=== PATIENT | female | born 1935 | race Caucasian/White ===

== ENCOUNTER → 2022-07-14 08:30 | Outpatient (CLI) | payer MEDICARE, OTHER, SELFPAY ==
--- NOTE | 2022-07-14 | DI.CT.S_ITS ---
PROCEDURE: CT HEAD/BRAIN WO CON INDICATIONS: DIZZINESS TECHNIQUE: Noncontrast 4.5 mm thick angled axial sections acquired from the foramen magnum to the vertex, with coronal and sagittal reformats. For radiation dose reduction, the following was used: automated exposure control, adjustment of mA and/or kV according to patient size. COMPARISON: [facility], CT, CT FACIAL BONES WITH CONTRAST, 02/21/2021, 12:27. [facility], CT, HEAD WITHOUT CONTRAST, 05/14/2009, 8:57. FINDINGS: Image quality: Excellent. CSF spaces: Basal cisterns are patent. No extra-axial fluid collections. The ventricles are symmetric in size and shape. Brain: No intracranial bleeds or masses. There is cerebral volume loss for age, with resultant ventricular and sulcal prominence. There are periventricular and deep white matter chronic small vessel ischemic changes. There is intracranial internal carotid artery atherosclerosis. Skull and face: Calvarium and visualized facial bones appear intact, without suspicious lesions. Sinuses: Visualized sinuses and mastoids are clear. IMPRESSION: Senescent changes of mild cerebral volume loss and microvascular ischemic changes without acute intracranial abnormality. Dictated by: Alejandro Holland D.O. on 07/14/2022 at 8:12 Approved by: Alejandro Holland D.O. on 07/14/2022 at 8:21
== END ==
PROVIDERS: PCP Family Medicine; Referring Provider Family Medicine; Visit Provider Family Medicine
DX: R42 Dizziness and giddiness (principal); R55 Syncope and collapse; R41.3 Other amnesia; R26.89 Other abnormalities of gait and mobility
CPT/HCPCS: 70450

== ENCOUNTER 2022-12-20 11:23 | Day surgery (SDC) | payer MEDICARE, OTHER, SELFPAY ==
[2022-12-20 13:21] VITALS: BP 145/99; PULSE 90; RESP 20; TEMP 36.1; O2SAT 97; BMI 22.3
--- NOTE | 2022-12-20 15:01 | P.HP_ITS ---
History of Present Illness History of Present Illness Date Patient Seen: 12/20/22 Time Patient Seen: 15:01 Chief complaint: Dx Colonoscopy w/poss bx Narrative: Anya is an 87-year-old woman who had 2 episodes of rectal bleeding recently. She has not had a colonoscopy before. [facility] Surgical History (Updated 06/11/17 @ 05:05 by Conversion Provider) History of cataract removal with insertion of prosthetic lens History of cataract removal with insertion of prosthetic lens Status post hysterectomy Family History (Updated 05/22/16 @ 00:00 by Conversion Provider) Mother High cholesterol Social History household members: none alcohol intake: current Meds Home Medications and Allergies Home Medications Medication Instructions Recorded Confirmed Type [CO-Q-10] Q DAY ##0 05/23/16 History losartan 25 mg tablet 25 mg PO BID #180 tabs 05/23/16 12/20/22 Rx lamotrigine 100 mg tablet 100 mg PO SEE INSTRUCTIONS 12/20/22 12/20/22 History (Lamictal) Allergies Allergy/AdvReac Type Severity Reaction Status Date / Time No Known Drug Allergies Allergy Verified 12/20/22 13:19 Exam Vital Signs (past 8 hours): - 12/20/22 13:21 Temperature 97.0 F L Pulse Rate 90 Respiratory Rate 20 Blood Pressure 145/99 H Pulse Oximetry 97 Oxygen Delivery Method Room Air Oxygen Delivery Method Room Air Const General: No acute distress Resp Effort & Inspection: normal respiratory effort Assessment & Plan Assessment and plan (1) Rectal bleeding: Status: Acute Plan We reviewed the risks and benefits of colonoscopy and she would like to proceed.
--- NOTE | 2022-12-20 15:39 | PM.OP.COLON ---
Operative Date/Time/Diagnoses Date of procedure: 12/20/22 Time of procedure: 15:39 Pre-op diagnosis: Rectal bleeding Post-op diagnosis: same Procedure & Clinicians Study performed: Colonoscopy Same procedure as scheduled: Yes Surgeon: Santos Montoya Procedure Notes Procedure in detail: Surgeon: Santos Montoya MD Anesthesia: Marilyn Stone CRNA Procedure: The patient was brought to the endoscopy suite, placed in left lateral decubitus position. The patient was connected to monitoring devices. A time-out was performed. Sedation was administered. Once the patient was adequately sedated, a digital rectal exam was performed and was normal. The scope was then inserted and advanced to the cecum where the appendiceal orifice was identified and photographed. The scope was then slowly withdrawn over greater than 6 minutes. The mucosa was thoroughly inspected. There was substantial diverticulosis greatest in the sigmoid colon. No other abnormalities were found. The scope was retroflexed in the rectum. Internal hemorrhoids were noted. The scope was straightened and removed. The patient was awakened and brought to recovery. Scope withdrawal time: 8 minutes Sedation time: 24 minutes EBL: 0 Findings: Extensive diverticulosis and hemorrhoids Post-procedure Disposition: PACU
[2022-12-20 15:40] VITALS: BP 105/73; PULSE 95; RESP 19; TEMP 37.1; O2SAT 95
[2022-12-20 15:45] VITALS: BP 91/61; PULSE 94; RESP 20; O2SAT 96
[2022-12-20 15:50] VITALS: BP 91/62; PULSE 92; RESP 18; O2SAT 95
[2022-12-20 16:05] VITALS: BP 108/70; PULSE 88; RESP 19; O2SAT 96
[2022-12-20 16:20] VITALS: BP 104/69; PULSE 90; RESP 18; TEMP 36.6; O2SAT 97
== END 2022-12-20 16:26 | disposition home or self-care (01) ==
PROVIDERS: PCP Family Medicine; Referring Provider Surgery; Visit Provider Surgery
PROC: 0DJD8ZZ Inspection of Lower Intestinal Tract, Via Natural or Artificial Opening Endoscopic (ICD-10-PCS; CPT 45378; principal; 2022-12-20 14:30)
DX: K62.5 Hemorrhage of anus and rectum (principal); K57.30 Diverticulosis of large intestine without perforation or abscess without bleeding; K64.8 Other hemorrhoids
CPT/HCPCS: 45378; J2704

== ENCOUNTER 2023-04-05 14:47 | Inpatient (IN) | payer MEDICARE, SELFPAY ==
[2023-04-05] VITALS (11 sets, daily range): BP systolic 115–188; BP diastolic 64–94; PULSE 75–86; RESP 16–26; TEMP 36.3–36.6; O2SAT 94–99; BMI 26.9
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
[2023-04-05 15:43] LABS: Add Manual Diff / Slide Review NO; Basophils Absolute Auto 0 /uL (0-100); Basophils Percent Auto 0.2 % (0-2); Eosinophils Absolute Auto 0 /uL (0-450); Eosinophils Percent Auto 0.3 % (2-4); Hematocrit 29.8 % (36-46); Hemoglobin 10.5 g/dL (12.0-16.0); Lymphocytes Absolute Auto 1000 /uL (1100-4500); Lymphocytes Percent Auto 14.6 % (25-40); Mean Corpuscular HGB Conc 35.3 % (30-36); Mean Corpuscular Hemoglobin 30.9 PG (26-34); Mean Corpuscular Volume 87.4 fL (80-100); Monocytes Absolute Auto 400 /uL (0-900); Monocytes Percent Auto 6.3 % (3-14); Neutrophils Absolute Auto 5400 /uL (1500-7000); Neutrophils Percent Auto 78.6 % (50-75); Platelet Count 314 X10^3/uL (150-400); Red Cell Distribution Width 14.1 % (11.6-14.8); White Blood Cell Count 6.8 X10^3/uL (4.5-11.0)
[2023-04-05 15:56] LABS: Lactate (Lactic Acid) 1.9 mmol/L (0.7-2.1)
[2023-04-05 15:57] LABS: Alanine Aminotransferase 16 IU/L (<35); Albumin 3.5 g/dL (3.5-5.0); Albumin Globulin Ratio 1.2 (1.0-2.8); Alkaline Phosphatase 60 U/L (38-126); Aspartate Aminotransferase 31 IU/L (14-36); BUN Creatinine Ratio 24.1 (6-22); Bilirubin Total 0.5 mg/dL (0.2-1.3); Blood Urea Nitrogen 26 mg/dL (7-17); Calcium 8.8 mg/dL (8.4-10.2); Carbon Dioxide 28 mmol/L (22-32); Chloride 84 mmol/L (98-107); Creatine Kinase 158 U/L (30-135); Estimated Glomerular Filt Rate 49 mL/min (>60); Globulin 2.9 g/dL (1.7-4.1); Glucose 127 mg/dL (80-110); HEMOLYSIS < 15 (0-50); Lipase 86 U/L (23-300); Magnesium 1.9 mg/dL (1.6-2.3); Potassium 3.4 mmol/L (3.4-5.1); Sodium 121 mmol/L (137-145); Total Protein 6.4 g/dL (6.3-8.2)
[2023-04-05 16:02] LABS: Prothrombin Time 11.3 SECONDS (9.4-12.5)
[2023-04-05 16:05] LABS: PTT Partial Thromboplastin Tim 30 SECONDS (25.1-36.5)
[2023-04-05 16:09] LABS: Troponin I < 0.012 ng/mL (0.01-0.034)
[2023-04-05 16:14] LABS: Procalcitonin 0.08 ng/mL (<0.5)
[2023-04-05 16:19] LABS: Bacteria Urine Few (2-10); RBC Urine 0-1/HPF (0-5/HPF); Squamous Epithelial Cell Urine 0-1 /HPF (0-5/HPF); Urine Volume 10mL (spun); WBC Urine 0-1/HPF (0-5/HPF)
[2023-04-05 16:20] LABS: Culture Indicated Urine Specimen Cultured; Granular Casts Urine 0-1/LPF; Mucus Urine 1+ (Negative)
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
--- NOTE | 2023-04-05 18:14 | CM.SWNOTE ---
Initial DCP Assessment Pt is 88 y/o female who presents to ED w/ son after syncopal episode and confusion today. Yesterday pt was pulled over by [employer] due to concern for driving over the medium, [employer] contacts pt's son from [facility] and son came to meet pt and witnessed pt's episode today. Pt's PCP is Dr. Sneed at [facility]. Pt has [employer], medicare, and [employer] insurance. Pt has hx of mixed Hyperlipedemia, HTN, and stage 3 CKD. Pt is hard of hearing and wears hearing aids. Pt is DNR and has living will. REPRODUCTIVE ENDOCRINOLOGIST enters the room to meet w/ pt. Pt consents to her son Aakash being present during assessment. Pt is oriented to person, place, and time but pt presents w/ confusion regarding memory recall and recent events. Pt lives alone on [address]. Pt [place] friends [place] for support. Pt's son Aakash lives in [facility] and visits every 4 to 6 weeks, Son checks in via texts and face time regularly. It is reported that daughter is disabled and resides in [place]. Pt often visits daughter via car. Pt indicates independence with ADL's. Pt states she exercises regularly, goes on walks, gardens, and manages her household. Pt states she drives independently at baseline and has no previous issues w/ driving. Pt's sons reprots w/ concern for an 8 hour period where it is unknown what pt was doing. Pt was in [facility] w/ plans to check into a hotel to take a driving test but pt never checked into the hotel yesterday. Pt endorses plans to continue to live on [address] and denies need for supports but is aware of [facility]. Pt's son indicates interest in looking into programs available to pt. ED provider reaches out to hospitalist due to concern for pt's acute hyponatremia and pt is accepted to acute care. Dr. Barnes enters room during assessment and endorses that pt will be admitted for a day or two. When REPRODUCTIVE ENDOCRINOLOGIST reviews this w/ pt she presents w/ confusion as to why she is being admitted. Pt states concern for making it to previously scheduled dermatology appointment Saturday w/ Dr. Dalton regarding concerns for skin cancer. Plan: Pt to be admitted to acute care. DCP to follow up w/ family and pt for POC. Recommend private conversation w/ son. MIRIAN Tang LSWAIC Discharge Planning/Care Management CM Discharge Assessment Start: 04/05/23 18:03 Freq: Status: Active Protocol: Document 04/05/23 18:04 BDL (Rec: 04/05/23 18:13 BDL [id number]) Discharge Planning Assessment Assigned Newspaper Photographer MIRIAN Tang LSWAIC DPOA/Assigned Designee Name Aakash Herrera - Son Contact Information [phone] Advance Directives? Yes: Living will Advance Directives on File No History Provided By Patient,Family Member,Medical Record Has Patient been admitted in last 30 No days? Prior Living Arrangements House Household Members none Type of transporation used prior to Drives own vehicle admit Comment Pt failed drive test yesterday . Pt drives at baseline. Independent with ADL's Yes Is patient alert and oriented? Yes: Confused Needs Assistance With Home Chores / Shopping Comment Pt pays for someone to mow the lawn. Caregiver for Another No Comment Pt preference is d/c home. Pt denies need for any services at this time. Reassess w/ pt and family. Barriers to Discharge No Additional Comment REPRODUCTIVE ENDOCRINOLOGIST discusses senior services through [place]. Please Provide Date Initial DC 04/05/23 Assessment Was Performed
[2023-04-05 18:34] LABS: Sodium Urine Random 68 mmol/L (30-90)
[2023-04-05 18:56] LABS: BUN Creatinine Ratio 24.8 (6-22); Blood Urea Nitrogen 26 mg/dL (7-17); Calcium 9.7 mg/dL (8.4-10.2); Carbon Dioxide 31 mmol/L (22-32); Chloride 87 mmol/L (98-107); Estimated Glomerular Filt Rate 51 mL/min (>60); Glucose 101 mg/dL (80-110); HEMOLYSIS < 15 (0-50); Potassium 4.9 mmol/L (3.4-5.1); Sodium 125 mmol/L (137-145)
[2023-04-05] MEDS: HEPARIN 5,000 UNIT/ML VIAL 5000 UNIT SUBCUT (20:34)
[2023-04-05] MEDS: SODIUM CHLORIDE 1,000 MG TABLET 1000 MG PO (20:34)
[2023-04-05] MEDS: SODIUM CHLORIDE 0.9% FLUSH 10 ML IV (20:46)
[2023-04-05] MEDS: diphenhydrAMINE 25 MG TABLET PO (21:58)
--- NOTE | 2023-04-05 22:18 | PC.NURSE ---
PT. educated that she can not take her home medications unless her doctor order that she can take her home meds. Also made aware that our day pharmacist needs to identify her home medications, before she can take it. She reported & stated my doctor said I can take my Ibuprofen PM. Informed her about our hospital policy that she can not take her own medicine unless MD order it. Put away her home medications in her bag & placed it in the recliner. Declined to put her meds. in the night pharmacy, coordinator notified. Dr. Hagan also notified she ordered 25 mg. Benadryl PO & order implemented. Will continue plan of care & monitor.
[2023-04-06 05:05] VITALS: BP 114/71; PULSE 70; RESP 18; TEMP 36.9; O2SAT 97
--- NOTE | 2023-04-06 07:38 | PM.PN.1 ---
Subjective Subjective Interval history: Her cognition is improved. She denies any problems overnight. She slept well. Exam Vital Signs (past 8 hours): - 04/06/23 05:05 Temperature 98.5 F Pulse Rate 70 Respiratory Rate 18 Blood Pressure 114/71 Pulse Oximetry 97 Oxygen Flow Rate 0 Oxygen Delivery Method Room Air Oxygen Flow Rate 0 Narrative Exam Narrative: NAD, alert and oriented. Fluent speech. Lungs are clear, normal rate and effort. Heart is regular, no murmur gallop or rub. Abdomen is soft, non distended. Extremities are free of edema. Objective Labs 04/05/23 15:35 04/05/23 18:12 Labs: Laboratory Results - last 24 hr 04/05/23 04/05/23 04/05/23 15:35 15:44 17:35 WBC 6.8 RBC 3.40 L Hgb 10.5 L Hct 29.8 L MCV 87.4 MCH 30.9 MCHC 35.3 RDW 14.1 Plt Count 314 Neut % (Auto) 78.6 H Lymph % (Auto) 14.6 L Routt % (Auto) 6.3 Eos % (Auto) 0.3 L Baso % (Auto) 0.2 Neut # (Auto) 5400 Lymph # (Auto) 1000 L Routt # (Auto) 400 Eos # (Auto) 0 Baso # (Auto) 0 PT 11.3 INR 1.0 APTT 30 Sodium 121 L Potassium 3.4 Chloride 84 L Carbon Dioxide 28 BUN 26 H Creatinine 1.08 H Estimated GFR 49 L BUN/Creatinine Ratio 24.1 H Glucose 127 H Lactate 1.9 Calcium 8.8 Magnesium 1.9 Total Bilirubin 0.5 AST 31 ALT 16 Alkaline Phosphatase 60 Total Creatine Kinase 158 H Troponin I < 0.012 Total Protein 6.4 Albumin 3.5 Globulin 2.9 Albumin/Globulin Ratio 1.2 Lipase 86 Procalcitonin 0.08 Urine RBC 0-1/hpf Urine WBC 0-1/hpf Ur Squamous Epith Cells 0-1 /hpf Urine Bacteria Few (2-10) H Granular Casts 0-1/lpf Urine Mucus 1+ H Ur Culture Indicated? Specimen cultured Vol Urine Centrifuged 10ml (spun) Ur Random Sodium 68 04/05/23 18:12 WBC RBC Hgb Hct MCV MCH MCHC RDW Plt Count Neut % (Auto) Lymph % (Auto) Routt % (Auto) Eos % (Auto) Baso % (Auto) Neut # (Auto) Lymph # (Auto) Routt # (Auto) Eos # (Auto) Baso # (Auto) PT INR APTT Sodium 125 L Potassium 4.9 D Chloride 87 L Carbon Dioxide 31 BUN 26 H Creatinine 1.05 H Estimated GFR 51 L BUN/Creatinine Ratio 24.8 H Glucose 101 Lactate Calcium 9.7 Magnesium Total Bilirubin AST ALT Alkaline Phosphatase Total Creatine Kinase Troponin I Total Protein Albumin Globulin Albumin/Globulin Ratio Lipase Procalcitonin Urine RBC Urine WBC Ur Squamous Epith Cells Urine Bacteria Granular Casts Urine Mucus Ur Culture Indicated? Vol Urine Centrifuged Ur Random Sodium PFSH Surgical History History of cataract removal with insertion of prosthetic lens History of cataract removal with insertion of prosthetic lens Status post hysterectomy Family History Mother High cholesterol Social History household members: none Smoking Status: Unknown if ever smoked alcohol intake: current Assessment & Plan Assessment & Plan narrative: 1. Hyponatremia in a patient who was taking salt tablets until 2 weeks ago. Present on admission and improving with sodium from 121-125 overnight. 2. Acute metabolic encephalopathy, present on admission and improving. This appears to relate to hyponatremia. 3. Hypertension, present on admission and active. Plan: -urine electrolytes, restart salt tablets and fluid restrict. -continue hypertension medications. DISPO: Anticipate discharge to home with son on April 07 if her sodium is close to 128 or 129 which is likely her baseline. Patient is DNR, confirmed time of admission. Her proxy decision maker is her son. Time Spent With Patient Time with patient: 30 to 49 minutes with 50% spent counseling/coordinating care
[2023-04-06] MEDS: LOSARTAN 50 MG TABLET 100 MG PO (09:13)
[2023-04-06] MEDS: hydroCHLOROthiazide 25 MG TABLET PO (09:13)
[2023-04-06] MEDS: HEPARIN 5,000 UNIT/ML VIAL 5000 UNIT SUBCUT ×2 (09:13→20:31)
[2023-04-06] MEDS: SODIUM CHLORIDE 1,000 MG TABLET 1000 MG PO ×2 (09:13→21:40)
[2023-04-06] MEDS: SODIUM CHLORIDE 0.9% FLUSH 10 ML IV ×2 (09:14→20:31)
[2023-04-06 11:57] VITALS: BP 148/99; PULSE 85; RESP 16; TEMP 36.2; O2SAT 98
--- NOTE | 2023-04-06 13:26 | CM.DPC ---
DCP Cont. Reviewed EMR and team rounds for status updates. Met with pt and son at bedside to discuss the plan for d/c once she's medically stable, she continues to be hyponatremic, but her mentation is improving since time of admit. This CARE ASST did explain the resources available at the 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 Plan is to d/c tomorrow back home to [place], her son, Aakash, will assist with getting her home.
[2023-04-06 16:00] VITALS: BP 165/88; PULSE 75; RESP 16; TEMP 36.7; O2SAT 96
[2023-04-06 20:00] VITALS: BP 179/90; PULSE 67; RESP 18; TEMP 36.3; O2SAT 96
[2023-04-06] MEDS: ACETAMINOPHEN 325 MG TABLET 650 MG PO (20:31)
[2023-04-07 05:10] VITALS: BP 130/84; PULSE 71; RESP 17; TEMP 36.6; O2SAT 99
[2023-04-07 08:51] VITALS: BP 178/100; PULSE 80; RESP 16; TEMP 36.4; O2SAT 96
[2023-04-07 08:59] VITALS: BP 178/100; PULSE 80
[2023-04-07] MEDS: LOSARTAN 50 MG TABLET 100 MG PO (08:59)
[2023-04-07] MEDS: HEPARIN 5,000 UNIT/ML VIAL 5000 UNIT SUBCUT (08:59)
[2023-04-07] MEDS: SODIUM CHLORIDE 1,000 MG TABLET 1000 MG PO (09:00)
[2023-04-07] MEDS: SODIUM CHLORIDE 0.9% FLUSH 10 ML IV (09:00)
[2023-04-07] MEDS: hydroCHLOROthiazide 25 MG TABLET PO (09:00)
[2023-04-07 09:49] LABS: Hematocrit 36.8 % (36-46); Hemoglobin 12.6 g/dL (12.0-16.0); Mean Corpuscular HGB Conc 34.3 % (30-36); Mean Corpuscular Hemoglobin 29.9 PG (26-34); Mean Corpuscular Volume 87.2 fL (80-100); Platelet Count 353 X10^3/uL (150-400); Red Blood Cell Count 4.22 X10^6/uL (4.0-5.2); White Blood Cell Count 5.6 X10^3/uL (4.5-11.0)
[2023-04-07 09:59] LABS: BUN Creatinine Ratio 18.5 (6-22); Blood Urea Nitrogen 15 mg/dL (7-17); Calcium 9.6 mg/dL (8.4-10.2); Carbon Dioxide 29 mmol/L (22-32); Chloride 88 mmol/L (98-107); Estimated Glomerular Filt Rate > 60 mL/min (>60); Glucose 137 mg/dL (80-110); HEMOLYSIS < 15 (0-50); Potassium 4.6 mmol/L (3.4-5.1); Sodium 125 mmol/L (137-145)
--- NOTE | 2023-04-07 10:23 | PM.DS.1 ---
History of Present Illness History of Present Illness Chief complaint: syncope, confussion Narrative: The patient is an 88-year-old female who lives on [address]. She came over yesterday to steady at a hotel and take a driving test today. She apparently became confused and lost about 8 hours of time in the evening. She was then pulled over for erratic driving around midnight by the police. They [place] in [place] meet her son who lives in [facility]. He then drove her down to [place] and found her car. They checked into the hotel and after waking up in the late morning began to head [place] to [place] to [place]. She then had a near syncopal episode and was somewhat unresponsive. He came to the hospital but she improved in route. She is somewhat confused about yesterday and does not recall the 8 hour. In the emergency department she has a sodium of 121. She has a history of low-sodium was taken salt pills until about 2 weeks ago when her doctor stopped them. Her son talked to her about every other day, she has no history of memory loss or cognitive impairment. CT scan of the brain was unremarkable in the emergency department. She denies any chest pain, numbness weakness of arms or legs, speech difficulties. Discharge Providers Provider Date of admission: 04/05/23 17:15 Discharge Date: 04/07/23 Primary care physician: April Sneed MD Consults: 04/05/23 15:35 [place] [facility] [place] Stat Comment: Discharge provider: Toby Barnes MD Summary Hospital Course Discharge Diagnosis: 1. Hyponatremia in a patient who was taking salt tablets until 2 weeks ago. Present on admission and improving with sodium from 121-125 overnight. 2. Acute metabolic encephalopathy, present on admission and improving. This appears to relate to hyponatremia. 3. Hypertension, present on admission and active. Hospital Course: She was admitted with acute on chronic hyponatremia. She was restarted on her salt tablets b.i.d. as well as a fluid restriction. Her hydrochlorothiazide losartan was changed to just losartan. She improved to 125 and had normal mental status. It was felt that she was stable for discharge with close follow up on labs on [place]. I believe she likely has a chronically low sodium of the 128-130 range. She appears to have normal cognition per her son at this point. Status at Discharge Cognitive/behavioral status at discharge: oriented Functional status at discharge: independent ambulation Overall status at discharge: patient is back to baseline Time Spent with Patient Time spent: Greater than 30 minutes Exam Vital Signs (past 8 hours): - 04/07/23 05:10 04/07/23 08:51 04/07/23 08:59 Temperature 97.8 F 97.6 F Pulse Rate 71 80 80 Respiratory Rate 17 16 Blood Pressure 130/84 178/100 H 178/100 H Pulse Oximetry 99 96 Oxygen Flow Rate 0 0 Oxygen Delivery Method Room Air Oxygen Flow Rate 0 Narrative Exam Narrative: NAD, alert and oriented. Fluent speech. Lungs are clear, normal rate and effort. Heart is regular, no murmur gallop or rub. Abdomen is soft, non distended. Extremities are free of edema. Objective Imaging Multiple studies:: Radiologist's impression: Brain CT normal Cervical CT normal Abdomen and pelvis chest CT normal. Labs 04/07/23 09:35 04/07/23 09:35 Labs: Laboratory Results - last 24 hr 04/06/23 04/07/23 12:30 09:35 WBC 5.6 RBC 4.22 Hgb 12.6 Hct 36.8 MCV 87.2 MCH 29.9 MCHC 34.3 RDW 14.0 Plt Count 353 Sodium 125 L Potassium 4.6 Chloride 88 L Carbon Dioxide 29 BUN 15 Creatinine 0.81 Estimated GFR > 60 BUN/Creatinine Ratio 18.5 Glucose 137 H Calcium 9.6 Urine Osmolality Cancelled [facility] Surgical History History of cataract removal with insertion of prosthetic lens History of cataract removal with insertion of prosthetic lens Status post hysterectomy Family History Mother High cholesterol Social History household members: none Smoking Status: Unknown if ever smoked alcohol intake: current Discharge Assessment & Plan Assessment and Plan Assessment: 1. Hyponatremia in a patient who was taking salt tablets until 2 weeks ago. Present on admission and improving with sodium from 121-125 overnight. 2. Acute metabolic encephalopathy, present on admission and improving. This appears to relate to hyponatremia. 3. Hypertension, present on admission and active. Plan of Treatment: Discharge home with the following plan: -resume salt tablets 1000 mg b.i.d., and fluid restriction. -discontinue hydrochlorothiazide and start taking losartan slowly. -improve diet in case there is a contribution of tea and toast syndrome. -follow up with PCP and repeat labs within the next 3 days to reassess sodium. Recommend weekly BMP for the next several weeks to track sodium. Discharge Plan Discharge Plan Patient Disposition: Home Provider Discharge Comment: Stable for discharge home, sodium is 125. I suspect her baseline may be in the 128 range. She will have close follow up and repeat lab testing. Discharge orders & Medications Prescriptions: New losartan 50 mg Tablet 100 mg PO DAILY Qty: 30 0RF sodium chloride 1,000 mg Tablet,Soluble 1,000 mg PO BID Qty: 60 0RF Continued [CO-Q-10] 1 tab PO Q DAY Qty: 0 lamotrigine [Lamictal] 100 MG tablet 100 mg PO SEE INSTRUCTIONS Discontinued losartan-hydrochlorothiazide 100-25 mg tablet 1 tab PO DAILY Medication counseling provided by Pharmacist: No Follow up/Referrals: April Sneed MD [Primary Care Provider] - Diet/Activity/Treatments Diet: Diet as Tolerated Visit Report/Discharge Packet Stand Alone Forms: Patient Portal/API Discharge Data Primary Care Provider: April Sneed Attending Provider: Toby Barnes Admit Date/Time: 04/05/23 17:15
--- NOTE | 2023-04-07 10:36 | CM.DPC ---
DCP Cont: Patient is discharging home today. With Dr. Barnes's permission, went ahead and printed out a priority pass for patient, and gave to her, son, Aakash, is at bedside. Patient is appreciative of all of the care that she has received here. There was no IMM currently available, UR nurse is sending an email to the AD group asking for IMM, since patient is discharging today. P: Patient is discharging back to [place] today, priority pass given. Mihaela Joe RN/Template Layout Worker
== END 2023-04-07 11:20 | disposition home or self-care (01) | DRG 640 ==
LOC: ED 15:00 → AC 17:15
PROVIDERS: Admitting Provider Hospitalist; Emergency Provider Emergency Medicine; PCP Family Medicine; Referring Provider Emergency Medicine; Visit Provider Hospitalist
DX: E87.1 Hypo-osmolality and hyponatremia (principal); G93.41 Metabolic encephalopathy; I10 Essential (primary) hypertension; Z66 Do not resuscitate
CPT/HCPCS: 36415; 70450; 71260; 72125; 74177; 80048; 80053; 81003; 81015; 82550; 83605; 83690; 83735; 84145; 84300; 84484; 85025; 85027; 85610; 85730; 87040; 87086; 93005; 99284; G0378; J1644